=== PATIENT | male | born 1965 | race Caucasian/White ===

== ENCOUNTER 2023-07-26 19:25 | Inpatient (IN) | payer OTHER, SELFPAY ==
[2023-07-26] VITALS (27 sets, daily range): BP systolic 93–139; BP diastolic 56–96; PULSE 89–165; RESP 16–25; TEMP 36.8–37.4; O2SAT 92–100
--- NOTE | 2023-07-26 19:56 | DI.CT.S_ITS ---
PROCEDURE: CT ABDOMEN PELVIS W CON INDICATIONS: ABD PAIN, GENERALIZED X 2 WKS TECHNIQUE: After the administration of intravenous contrast, axial sections acquired from the lung bases to the pubic symphysis. Coronal and sagittal reformats were performed. For radiation dose reduction, the following was used: automated exposure control, adjustment of mA and/or kV according to patient size. COMPARISON: Formerly [facility], CT, ABDOMEN/PELVIS WITH CONTRAST, 10/17/2011, 20:21. Former[facility], CT, ABDOMEN/PELVIS WITH CONTRAST, 03/13/2010, 21:26. FINDINGS: Image quality: Diagnostic. Lower Chest: No significant findings. ABDOMEN: Liver: No solid mass. There is diffuse hypoattenuation of the liver parenchyma relative to the spleen compatible with hepatic steatosis. Gallbladder: No radiopaque gallstones or wall thickening. Biliary ducts: No biliary dilation. Pancreas: No ductal dilation. Spleen: Size is within normal limits. Adrenal Glands: No adrenal nodules. Kidneys and Ureters: No hydronephrosis. No solid mass. No complex renal cystic lesion which requires follow up. Stomach and Bowel: Normal colonic caliber, without significant wall thickening. Normal appendix. Scattered colonic diverticula without acute inflammation. Peritoneum: No abnormal intraperitoneal fluid. No free air. Ventral Wall: No significant ventral hernia. Abdominal Nodes: No retroperitoneal or mesenteric adenopathy by size criteria. Vessels: Scattered atherosclerotic calcifications of the abdominal aorta and iliac vessels without aneurysmal dilatation. The inferior vena cava appears patent. PELVIS: Pelvic Organs: Unremarkable. Bladder: No bladder wall thickening, accounting for underdistention. Pelvic Nodes: No enlarged lymph nodes. Miscellaneous: No inguinal hernias are seen. Bones: No aggressive osseous abnormality. Multilevel spondylosis of the imaged spine. Chronic appearing anterior compression deformity of the T12 vertebral body. IMPRESSION: CT abdomen and pelvis without acute abnormalities to explain patient's symptoms. Colonic diverticulosis without acute diverticulitis. Normal appendix. Hepatic steatosis. Dictated by: Galo Lester M.D. on 07/26/2023 at 21:48 Approved by: Galo Lester M.D. on 07/26/2023 at 21:53
--- NOTE | 2023-07-26 19:57 | DI.RAD.S_ITS ---
PROCEDURE: XR CHEST 1V INDICATIONS: CHEST PAIN TECHNIQUE: One view of the chest was acquired. COMPARISON: [facility], , CHEST 1 VIEW, 04/12/2014, 17:59. FINDINGS: Surgical changes and devices: None. Lungs and pleura: Lungs are clear. No pleural effusions or pneumothorax. Mediastinum: Mediastinal contours appear normal. Heart size is normal. Bones and chest wall: No suspicious bony lesions. Overlying soft tissues appear unremarkable. IMPRESSION: Stable radiographic evaluation of the chest without acute cardiopulmonary abnormalities or focal airspace disease. Dictated by: Galo Lester M.D. on 07/26/2023 at 21:48 Approved by: Galo Lester M.D. on 07/26/2023 at 21:48
--- NOTE | 2023-07-26 19:57 | ED.GENADULT ---
HPI - General Adult General Chief complaint: Abdominal Pain Stated complaint: ABD Pain Time Seen by Provider: 07/26/23 19:51 Source: patient Mode of arrival: Wheelchair History of Present Illness HPI narrative: 58-year-old male with no reported past medical history (has not seen a PCP in >3 years) presents by private vehicle from home for chest pain, abdominal pain, generally feeling unwell for 10 days. Patient states that after watching the super bowl he began to feel poorly with all of the aforementioned symptoms. He states that he was stubborn and tried to wait it out at home, but today he felt even worse than usual and decided to present for evaluation. Patient was found to be in atrial fibrillation with rapid ventricular response and a rate of 150s on arrival. Denies history of AFib or heart problems. Related Data Home Medications Medication Instructions Recorded Confirmed nebivolol 5 mg tablet (Bystolic) 5 mg PO HS ##0 08/27/12 ondansetron HCl 4 mg tablet 4 mg PO PRN ##0 08/27/12 Allergies Allergy/AdvReac Type Severity Reaction Status Date / Time Penicillins Allergy Anaphylaxis Verified 07/26/23 19:45 Sulfa (Sulfonamide Allergy Anaphylaxis Verified 07/26/23 19:46 Antibiotics) TREES Allergy Unknown Uncoded 09/13/17 12:07 Review of Systems Review of Systems Narrative: Negative except as noted above Patient History Social History Smoking Status: Never smoker Smoking Status: Never smoker alcohol intake frequency: holidays/special occasions only Substance Use Type: does not use Exam Initial Vital Signs Initial Vital Signs: Vital Signs Temperature 98.2 F 07/26/23 19:46 Pulse Rate 157 H 07/26/23 19:46 Respiratory Rate 20 07/26/23 19:46 Blood Pressure 94/60 07/26/23 19:46 Pulse Oximetry 99 07/26/23 19:46 Oxygen Delivery Method Room Air 07/26/23 19:46 Const: Awake, alert, ill-appearing, nontoxic Cardiac: Tachycardia, irregularly irregular RESP: unlabored, clear bilaterally, no wheezing GI: Atraumatic, soft, generalized tenderness to deep palpation without rebound or guarding Skin: Warm, Dry, intact, no rashes Neuro: AO x3, CN II-XII grossly intact, moves all extremities Psych: affect normal, mood normal, not suicidal, not homicidal Course Orders Ordered: ED Orders 07/26/23 19:56 CT abdomen pelvis w con Stat 07/26/23 19:57 Chest [XR chest 1V] Stat EKG-12 Lead Stat 07/26/23 20:00 BNP [NT-proBNP (BNP-Adult 18+)] Stat CBC Auto Diff [Complete Blood Count AUTO DIFF] Stat CMP [Comprehensive Metabolic Panel] Stat Ethanol (ETOH) Stat Lipase Stat MAG [Magnesium] Stat PT [Prothrombin Time INR] Stat TSH [Thyroid Stimulating Hormone] Stat Troponin & CK Cardiac Panel Stat 07/26/23 21:45 UA Complete [Urinalysis and Microscopic] Stat Urine Drug Screen, Rapid Stat 07/27/23 00:14 ABG [Arterial Blood Gas] Stat Amiodarone HCl/Dextrose (Nexterone) 360 mg in 200 mls @ 33.333 mls/hr IV NOW ONE; Protocol Stop: 07/27/23 05:51 Last Admin: 07/27/23 00:18 Dose: 33.333 mls/hr, 33.33 mls/hr Documented By: LANA Discontinued Medications Al Hydrox/Mg Hydrox/Simethicone (Mag Hydrox/Alum/Simeth 30 Ml Udc) 30 ml PO NOW ONE Stop: 07/26/23 22:10 Last Admin: 07/26/23 22:14 Dose: 30 ml Documented By: LANA Diltiazem HCl (Diltiazem 5 Mg/Ml Sdv) 20 mg IV NOW ONE Stop: 07/26/23 21:08 Last Admin: 07/26/23 21:15 Dose: 20 mg Documented By: LENORE Sodium Chloride (Normal Saline 0.9%) 1,000 mls @ 1,000 mls/hr IV BOLUS ONE Stop: 07/26/23 20:55 Last Infusion: 07/26/23 21:17 Dose: Infused Documented By: Admin: 07/26/23 20:12 Dose: 1,000 mls/hr Documented By: LENORE Sodium Chloride (Normal Saline 0.9%) 1,000 mls @ 1,000 mls/hr IV BOLUS ONE Stop: 07/26/23 21:36 Last Infusion: 07/26/23 22:05 Dose: Infused Documented By: Admin: 07/26/23 20:58 Dose: 1,000 mls/hr Documented By: LENORE Sodium Chloride (Normal Saline 0.9%) 1,000 mls @ 1,000 mls/hr IV BOLUS ONE Stop: 07/26/23 23:29 Last Infusion: 07/26/23 23:47 Dose: Infused Documented By: Admin: 07/26/23 22:42 Dose: 1,000 mls/hr Documented By: LENORE Amiodarone HCl/Dextrose (Nexterone) 150 mg in 100 mls @ 600 mls/hr IV NOW ONE; Protocol Stop: 07/27/23 00:01 Last Infusion: 07/27/23 00:19 Dose: Infused Documented By: Admin: 07/26/23 23:58 Dose: 600 mls/hr Documented By: LANA Insulin Human Regular (Insulin Regular 100 Unit/Ml 3 Ml Vial) 5 unit IV NOW ONE Stop: 07/26/23 20:50 Last Admin: 07/26/23 21:01 Dose: 5 unit Documented By: LENORE Co-signed By: OLEG Insulin Human Regular (Insulin Regular 100 Unit/Ml 3 Ml Vial) 5 unit IV NOW ONE Stop: 07/26/23 22:31 Last Admin: 07/26/23 22:42 Dose: 5 unit Documented By: LENORE Co-signed By: LANA Lidocaine HCl (Lidocaine Viscous 2% 15 Ml Solution) 15 ml PO NOW ONE Stop: 07/26/23 22:10 Last Admin: 07/26/23 22:14 Dose: 15 ml Documented By: LANA Metoprolol Tartrate (Metoprolol Tartrate 5 Mg/5 Ml Inj) 5 mg IV Q5M AIDE Stop: 07/26/23 20:11 Last Admin: 07/26/23 20:58 Dose: 5 mg Documented By: Admin: 07/26/23 20:26 Dose: 5 mg Documented By: Admin: 07/26/23 20:12 Dose: 5 mg Documented By: LENORE Vital Signs Vital signs: Vital Signs - 8 hr 07/26/23 19:46 07/26/23 19:53 07/26/23 19:53 Temperature 98.2 F Pulse Rate 157 H 155 H Respiratory Rate 20 21 Blood Pressure 94/60 113/76 Pulse Oximetry 99 98 Oxygen Delivery Method Room Air 07/26/23 20:00 07/26/23 20:00 07/26/23 20:02 Temperature 99.3 F Pulse Rate 162 H 162 H Respiratory Rate 25 H 19 Blood Pressure Pulse Oximetry 92 99 Oxygen Delivery Method 07/26/23 20:02 07/26/23 20:12 07/26/23 20:12 Temperature Pulse Rate 162 H Respiratory Rate 20 Blood Pressure 121/96 H 112/83 Pulse Oximetry 96 Oxygen Delivery Method 07/26/23 20:18 07/26/23 20:18 07/26/23 20:25 Temperature Pulse Rate 162 H Respiratory Rate Blood Pressure 130/84 139/83 Pulse Oximetry 96 Oxygen Delivery Method 07/26/23 20:25 07/26/23 20:29 07/26/23 20:29 Temperature Pulse Rate 151 H 133 H Respiratory Rate 23 21 Blood Pressure 122/68 Pulse Oximetry 98 98 Oxygen Delivery Method 07/26/23 20:30 07/26/23 20:30 07/26/23 20:32 Temperature Pulse Rate 134 H 165 H Respiratory Rate 18 23 Blood Pressure 128/78 Pulse Oximetry 97 97 Oxygen Delivery Method Room Air 07/26/23 20:32 07/26/23 20:58 07/26/23 20:58 Temperature Pulse Rate 159 H Respiratory Rate 17 Blood Pressure 128/74 123/61 Pulse Oximetry 98 Oxygen Delivery Method 07/26/23 21:00 07/26/23 21:00 07/26/23 21:15 Temperature Pulse Rate 155 H 143 H Respiratory Rate 16 Blood Pressure 118/74 110/83 Pulse Oximetry 97 Oxygen Delivery Method Room Air 07/26/23 21:16 07/26/23 21:16 07/26/23 21:21 Temperature Pulse Rate 144 H Respiratory Rate 18 Blood Pressure 110/83 123/83 Pulse Oximetry 99 Oxygen Delivery Method 07/26/23 21:21 07/26/23 21:23 07/26/23 21:23 Temperature Pulse Rate 131 H 103 H Respiratory Rate 19 21 Blood Pressure 115/69 Pulse Oximetry 99 98 Oxygen Delivery Method Room Air 07/26/23 21:24 07/26/23 21:24 07/26/23 21:25 Temperature Pulse Rate 103 H Respiratory Rate 21 Blood Pressure 103/64 98/57 L Pulse Oximetry 99 Oxygen Delivery Method 07/26/23 21:25 07/26/23 21:30 07/26/23 21:30 Temperature Pulse Rate 102 H 93 H Respiratory Rate 20 20 Blood Pressure 93/63 Pulse Oximetry 98 97 Oxygen Delivery Method 07/26/23 21:45 07/26/23 21:45 07/26/23 22:00 Temperature Pulse Rate 91 H Respiratory Rate 17 Blood Pressure 101/70 101/78 Pulse Oximetry 100 Oxygen Delivery Method 07/26/23 22:00 07/26/23 22:30 07/26/23 22:30 Temperature Pulse Rate 93 H 100 H Respiratory Rate 18 19 Blood Pressure 96/57 L Pulse Oximetry 100 98 Oxygen Delivery Method 07/26/23 23:00 07/26/23 23:02 07/26/23 23:04 Temperature Pulse Rate 111 H 118 H Respiratory Rate 18 19 Blood Pressure 101/64 Pulse Oximetry 99 98 Oxygen Delivery Method 07/26/23 23:04 07/26/23 23:05 07/26/23 23:05 Temperature Pulse Rate 89 109 H Respiratory Rate Blood Pressure 109/56 L Pulse Oximetry 99 99 Oxygen Delivery Method 07/26/23 23:30 07/26/23 23:30 07/27/23 00:00 Temperature Pulse Rate 123 H 116 H Respiratory Rate 19 Blood Pressure 101/64 Pulse Oximetry 98 99 Oxygen Delivery Method Room Air 07/27/23 00:00 07/27/23 00:30 07/27/23 00:30 Temperature Pulse Rate 119 H Respiratory Rate 18 Blood Pressure 108/68 91/65 Pulse Oximetry 100 Oxygen Delivery Method Medical Decision Making Differential Diagnosis Differential Diagnosis: Atrial fibrillation with rapid ventricular response, hypertension, DKA Lab Data 07/26/23 20:00 07/26/23 20:00 Labs: Lab Results 07/26/23 07/26/23 07/26/23 Range/Units 20:00 21:45 21:45 WBC 11.9 H (4.5-11.0) X10^3/uL RBC 5.57 (4.5-5.9) X10^6/uL Hgb 17.9 H (13.5-17.5) g/dL Hct 52.4 (41-53) % MCV 93.9 (80-100) fL MCH 32.0 (26-34) PG MCHC 34.1 (30-36) % RDW 13.2 (11.6-14.8) % Plt Count 209 (150-400) X10^3/uL Neut % (Auto) 87.9 H (50-75) % Lymph % (Auto) 6.0 L (25-40) % Mobile % (Auto) 5.9 (3-14) % Eos % (Auto) 0.0 L (2-4) % Baso % (Auto) 0.2 (0-2) % Neut # (Auto) 26605 H (9720-6924) /uL Lymph # (Auto) 700 L (7048-5181) /uL Mobile # (Auto) 700 (0-900) /uL Eos # (Auto) 0 (0-450) /uL Baso # (Auto) 0 (0-100) /uL PT 12.9 H (9.4-12.5) SECONDS INR 1.1 (0.9-1.3) ABG Sample Site ABG pH (7.35-7.45) ABG pCO2 (35-45) mmHg ABG pO2 (80-100) mmHg ABG HCO3 (23-27) mmol/L ABG Total CO2 (23-27) mmol/L ABG O2 Saturation (95-100) % ABG Base Excess (-2-3) mmol/L FiO2 Sodium 131 L (137-145) mmol/L Potassium 4.8 (3.4-5.1) mmol/L Chloride 96 L (98-107) mmol/L Carbon Dioxide 11 L (22-32) mmol/L BUN 41 H (9-20) mg/dL Creatinine 1.19 (0.66-1.25) mg/dL Estimated GFR > 60 (>60) mL/min BUN/Creatinine Ratio 34.5 H (6-22) Glucose 611 H* (80-110) mg/dL Calcium 9.2 (8.4-10.2) mg/dL Magnesium 2.4 H (1.6-2.3) mg/dL Total Bilirubin 2.5 H (0.2-1.3) mg/dL AST 39 (17-59) IU/L ALT 66 H (<50) IU/L Alkaline Phosphatase 68 (38-126) U/L Total Creatine Kinase 172 H (55-170) U/L Troponin I < 0.012 (0.01-0.034) ng/mL NT-Pro-B Natriuret Pep 3700 H (<125) pg/mL Total Protein 7.6 (6.3-8.2) g/dL Albumin 4.5 (3.5-5.0) g/dL Globulin 3.1 (1.7-4.1) g/dL Albumin/Globulin Ratio 1.5 (1.0-2.8) Lipase 277 (23-300) U/L TSH 1.25 (0.47-4.68) uIU/mL Urine Color Yellow Urine Appearance Clear Urine pH 5.5 Normal (4.5-8.0) Ur Specific [place] <=1.005 (1.000-1.035) Urine Protein Negative (Negative) Urine Glucose (UA) 3+ H (Negative) g/dL Urine Ketones 1+ H (NEGATIVE) Urine Occult Blood Negative (Negative) Urine Nitrate Negative (Negative) Urine Bilirubin Negative (NEGATIVE) Urine Urobilinogen 0.2 (0.2) E.U./dL Ur Leukocyte Esterase Negative (NEGATIVE) Urine RBC None seen (0-5/HPF) Urine WBC None seen (0-5/HPF) Ur Squamous Epith Cells None seen (0-5/HPF) Urine Bacteria None seen (None) Ur Culture Indicated? Cult not indicated Vol Urine Centrifuged 10ml (spun) U Opiates 300ng/mL cut Negative (Negative) Ur Oxycodone Screen Negative (Negative) Urine Methadone Screen Negative (Negative) Ur Barbiturates Screen Negative (Negative) U Tricyclic Antidepress Negative (Negative) Ur Phencyclidine Scrn Negative (Negative) Ur Amphetamines Screen Negative (Negative) U Methamphetamines Scrn Negative (Negative) Ur MDMA Scrn (Ecstasy) Negative (Negative) U Benzodiazepines Scrn Negative (Negative) Urine Cocaine Screen Negative (Negative) U Marijuana (THC) Screen Negative (Negative) Urine Specific [place] Normal (Normal) Ethyl Alcohol < 10 ( - 10) mg/dL Ur Creatinine Normal (Normal) 07/27/23 Range/Units 00:14 WBC (4.5-11.0) X10^3/uL RBC (4.5-5.9) X10^6/uL Hgb (13.5-17.5) g/dL Hct (41-53) % MCV (80-100) fL MCH (26-34) PG MCHC (30-36) % RDW (11.6-14.8) % Plt Count (150-400) X10^3/uL Neut % (Auto) (50-75) % Lymph % (Auto) (25-40) % Mobile % (Auto) (3-14) % Eos % (Auto) (2-4) % Baso % (Auto) (0-2) % Neut # (Auto) (5093-8979) /uL Lymph # (Auto) (4052-7764) /uL Mobile # (Auto) (0-900) /uL Eos # (Auto) (0-450) /uL Baso # (Auto) (0-100) /uL PT (9.4-12.5) SECONDS INR (0.9-1.3) ABG Sample Site Right radial ABG pH 7.35 (7.35-7.45) ABG pCO2 28.8 L (35-45) mmHg ABG pO2 89 (80-100) mmHg ABG HCO3 16 L (23-27) mmol/L ABG Total CO2 17 L (23-27) mmol/L ABG O2 Saturation 97 (95-100) % ABG Base Excess -9.0 L (-2-3) mmol/L FiO2 21 Sodium (137-145) mmol/L Potassium (3.4-5.1) mmol/L Chloride (98-107) mmol/L Carbon Dioxide (22-32) mmol/L BUN (9-20) mg/dL Creatinine (0.66-1.25) mg/dL Estimated GFR (>60) mL/min BUN/Creatinine Ratio (6-22) Glucose (80-110) mg/dL Calcium (8.4-10.2) mg/dL Magnesium (1.6-2.3) mg/dL Total Bilirubin (0.2-1.3) mg/dL AST (17-59) IU/L ALT (<50) IU/L Alkaline Phosphatase (38-126) U/L Total Creatine Kinase (55-170) U/L Troponin I (0.01-0.034) ng/mL NT-Pro-B Natriuret Pep (<125) pg/mL Total Protein (6.3-8.2) g/dL Albumin (3.5-5.0) g/dL Globulin (1.7-4.1) g/dL Albumin/Globulin Ratio (1.0-2.8) Lipase (23-300) U/L TSH (0.47-4.68) uIU/mL Urine Color Urine Appearance Urine pH (4.5-8.0) Ur Specific [place] (1.000-1.035) Urine Protein (Negative) Urine Glucose (UA) (Negative) g/dL Urine Ketones (NEGATIVE) Urine Occult Blood (Negative) Urine Nitrate (Negative) Urine Bilirubin (NEGATIVE) Urine Urobilinogen (0.2) E.U./dL Ur Leukocyte Esterase (NEGATIVE) Urine RBC (0-5/HPF) Urine WBC (0-5/HPF) Ur Squamous Epith Cells (0-5/HPF) Urine Bacteria (None) Ur Culture Indicated? Vol Urine Centrifuged U Opiates 300ng/mL cut (Negative) Ur Oxycodone Screen (Negative) Urine Methadone Screen (Negative) Ur Barbiturates Screen (Negative) U Tricyclic Antidepress (Negative) Ur Phencyclidine Scrn (Negative) Ur Amphetamines Screen (Negative) U Methamphetamines Scrn (Negative) Ur MDMA Scrn (Ecstasy) (Negative) U Benzodiazepines Scrn (Negative) Urine Cocaine Screen (Negative) U Marijuana (THC) Screen (Negative) Urine Specific [place] (Normal) Ethyl Alcohol ( - 10) mg/dL Ur Creatinine (Normal) Point of Care Testing Glucose POC 440 Point of care testing: Point of Care Testing Glucose POC 440 ECG Data Interpretation: Atrial fibrillation with 2-1 conduction, rate 162 beats per minute, no ST T wave changes MDM Narrative Medical decision making narrative: Ill-appearing patient presenting for multiple symptoms, found to be in atrial fibrillation with rapid ventricular response on arrival. Patient taken quickly to ED bed where he was placed on monitoring manager, pulse ox applied, large-bore IV established. Uncertain when atrial fibrillation started, however patient has felt poorly for the last 10 days, patient is not a candidate for rhythm control in the emergency department. Since EKG shows 2-1 conduction we will start with IV metoprolol. No improvement in heart rate with IV metoprolol x3. Will attempt Cardizem next. Laboratory work is significant for WBC count 11.9, sodium 131, chloride 96, CO2 11, creatinine 1.19, T bili 2.5, glucose 611. Calculated anion gap 24. Patient given bolus of insulin and started on IV fluids. CT of the abdomen and pelvis shows no acute findings, uncertain significance of elevated bilirubin. Heart rate briefly improved to 100-110s with Cardizem, however the effect was brief, lasting just over 1 hour, and patient rapidly returned to AFib with RVR with blood pressure 101 systolic. Will attempt amiodarone next. ABG shows pH 7.35, CO2 29, PO2 89, bicarb 16. Patient is continued on IV fluids and amiodarone. Plan to admit patient for further treatment. Critical Care Time Critical Care Time Critical Care Time: Yes Total Critical Care Time: 42 Attestation: Atrial fibrillation with RVR resistant to multiple medications, hyperglycemia requiring correction. Anion gap acidosis Discharge Plan Departure Patient Disposition: Admitted as Observation Clinical Impression: Atrial fibrillation with RVR, Hyperglycemia Admit Date/Time: 07/27/23 00:34 Admit Provider: Boogie Black
[2023-07-26] MEDS: METOPROLOL TARTRATE 5 MG/5 ML INJ IV ×3 (20:12→20:58)
[2023-07-26] MEDS: SODIUM CHLORIDE 0.9% 1,000 ML 1000 ML IV ×3 (20:12→22:42)
[2023-07-26 20:21] LABS: Add Manual Diff / Slide Review NO; Basophils Absolute Auto 0 /uL (0-100); Basophils Percent Auto 0.2 % (0-2); Eosinophils Absolute Auto 0 /uL (0-450); Hematocrit 52.4 % (41-53); Hemoglobin 17.9 g/dL (13.5-17.5); Lymphocytes Absolute Auto 700 /uL (1100-4500); Mean Corpuscular HGB Conc 34.1 % (30-36); Mean Corpuscular Volume 93.9 fL (80-100); Monocytes Absolute Auto 700 /uL (0-900); Monocytes Percent Auto 5.9 % (3-14); Neutrophils Absolute Auto 10500 /uL (1500-7000); Neutrophils Percent Auto 87.9 % (50-75); Platelet Count 209 X10^3/uL (150-400); Red Blood Cell Count 5.57 X10^6/uL (4.5-5.9); Red Cell Distribution Width 13.2 % (11.6-14.8); White Blood Cell Count 11.9 X10^3/uL (4.5-11.0)
[2023-07-26 20:25] LABS: INR 1.1 (0.9-1.3); Prothrombin Time 12.9 SECONDS (9.4-12.5)
[2023-07-26 20:33] LABS: Alanine Aminotransferase 66 IU/L (<50); Albumin 4.5 g/dL (3.5-5.0); Albumin Globulin Ratio 1.5 (1.0-2.8); Alkaline Phosphatase 68 U/L (38-126); Aspartate Aminotransferase 39 IU/L (17-59); BUN Creatinine Ratio 34.5 (6-22); Bilirubin Total 2.5 mg/dL (0.2-1.3); Blood Urea Nitrogen 41 mg/dL (9-20); Calcium 9.2 mg/dL (8.4-10.2); Carbon Dioxide 11 mmol/L (22-32); Chloride 96 mmol/L (98-107); Creatine Kinase 172 U/L (55-170); Estimated Glomerular Filt Rate > 60 mL/min (>60); Ethanol (ETOH) < 10 mg/dL; Globulin 3.1 g/dL (1.7-4.1); HEMOLYSIS 22 (0-50); Lipase 277 U/L (23-300); Magnesium 2.4 mg/dL (1.6-2.3); Potassium 4.8 mmol/L (3.4-5.1); Sodium 131 mmol/L (137-145); Total Protein 7.6 g/dL (6.3-8.2)
[2023-07-26 20:35] LABS: Glucose 611 mg/dL (80-110)
[2023-07-26 20:44] LABS: NT-proBNP (BNP-Adult 18+) 3700 pg/mL (<125); Troponin I < 0.012 ng/mL (0.01-0.034)
[2023-07-26] MEDS: INSULIN REGULAR 100 UNIT/ML 3 ML VIAL IV ×2 (21:01→22:42)
[2023-07-26 21:08] LABS: Thyroid Stimulating Hormone 1.25 uIU/mL (0.47-4.68)
[2023-07-26] MEDS: dilTIAZem 5 MG/ML SDV 20 MG IV (21:15)
[2023-07-26 22:03] LABS: Appearance Urine UA CLEAR; Bilirubin Urine UA NEGATIVE (NEGATIVE); Color Urine UA YELLOW; Glucose Urine UA 3+ g/dL (Negative); Ketones Urine UA 1+ (NEGATIVE); Leukocyte Esterase Urine UA NEGATIVE (NEGATIVE); Nitrite Urine UA NEGATIVE (Negative); Occult Blood Urine UA NEGATIVE (Negative); Protein Urine UA NEGATIVE (Negative); Specific Gravity Urine UA <=1.005 (1.000-1.035); Urobilinogen Urine UA 0.2 E.U./dL (0.2); pH Urine UA 5.5 (4.5-8.0)
[2023-07-26 22:10] LABS: Ur Creatinine Normal (Normal); Ur Specific Gravity Normal (Normal); Urine Amphetamines Negative (Negative); Urine Barbiturates Negative (Negative); Urine Benzodiazepines Negative (Negative); Urine Cocaine Negative (Negative); Urine MDMA Negative (Negative); Urine Methadone Negative (Negative); Urine Methamphetamines Negative (Negative); Urine Opiates Negative (Negative); Urine Oxycodone Negative (Negative); Urine Phencyclidine Negative (Negative); Urine THC Negative (Negative); Urine Tricyclic Antidepressant Negative (Negative); Urine pH Normal (Normal)
[2023-07-26] MEDS: MAG HYDROX/ALUM/SIMETH 30 ML UDC PO (22:14)
[2023-07-26] MEDS: LIDOCAINE VISCOUS 2% 15 ML SOLUTION PO (22:14)
[2023-07-26 22:24] LABS: Bacteria Urine None Seen; RBC Urine None Seen (0-5/HPF); Squamous Epithelial Cell Urine None Seen (0-5/HPF); Urine Volume 10mL (spun); WBC Urine None Seen (0-5/HPF)
[2023-07-26 22:25] LABS: Culture Indicated Urine Cult Not Indicated
[2023-07-26] MEDS: AMIODARONE 150 MG/100 ML PIGGYBACK 600 MG IV (23:58)
[2023-07-27] VITALS (58 sets, daily range): BP systolic 82–139; BP diastolic 52–96; PULSE 66–136; RESP 0–30; O2SAT 94–100; BMI 29.0
[2023-07-27] MEDS: AMIODARONE 360 MG/200 ML PIGGYBACK 33.33 MG IV (00:18)
[2023-07-27 00:29] LABS: HCO3 ABG 16 mmol/L (23-27); PCO2 ABG 28.8 mmHg (35-45); PO2 ABG 89 mmHg (80-100); pH ABG 7.35 (7.35-7.45)
[2023-07-27 00:30] LABS: Allen Test for ABG Passed? Yes, Passed; Blood Gas Collection Site Right Radial; Fractionated Inspired Oxygen 21; Oxygen Saturation ABG 97 % (95-100); TCO2 ABG 17 mmol/L (23-27)
--- NOTE | 2023-07-27 04:21 | P.HP_ITS ---
History of Present Illness History of Present Illness Chief complaint: ABD Pain Narrative: Abdominal pain 58 years old male with apparent history of hypertension but not on seen a physician in more than 3 years was brought to the emergency room for abdominal pain with generalized weakness and also chest pain.? Reports that symptoms started after the [place] last week and initially thought it was indigestion issues but due to persistent symptoms, eventually was brought to the emergency room.? In the ED was noted to be in A-fib with rapid ventricular rate and heart rate in the 150s.? Denies any palpitations or loss of consciousness.? Did have abdominal pain which is diffuse with nausea and vomiting multiple episodes since the past few days and the last episode had some blood in it.? Last bowel movement was 2 days ago.? Blood pressure systolic was in the 90s with a pulse in the 150s.? He was initiated on IV fluid bolus and a follow-up labs revealed a WBC count of 11.9, hemoglobin of 17.9, sodium of 131 with a CO2 of 11 BUN of 41 and a creatinine of 1.19.? BNP was 3700 and a blood sugar of 611 with an anion gap of greater than 20.? Subsequent ABG revealed a pH of 7.35 with a pCO2 of 28.8. CT abdomen was negative for acute process.? Patient received IV insulin with aggressive volume resuscitation in addition to IV metoprolol X.3, IV Cardizem bolus.? With no response to either medication, patient was subsequently started on amiodarone drip.? He was requested for admission but currently boarded in the emergency room due to bed availability issues [facility] Social History Smoking Status: Never smoker Meds Home Medications and Allergies Home Medications Medication Instructions Recorded Confirmed Type nebivolol 5 mg tablet (Bystolic) 5 mg PO HS ##0 08/27/12 History ondansetron HCl 4 mg tablet 4 mg PO PRN ##0 08/27/12 History Allergies Allergy/AdvReac Type Severity Reaction Status Date / Time Penicillins Allergy Anaphylaxis Verified 07/26/23 19:45 Sulfa (Sulfonamide Allergy Anaphylaxis Verified 07/26/23 19:46 Antibiotics) TREES Allergy Unknown Uncoded 09/13/17 12:07 Review of Systems Review of Systems Narrative: 12 point review of system is negative unless other sarah stated in HPI Exam Vital Signs (past 8 hours): - 07/26/23 20:25 07/26/23 20:25 07/26/23 20:29 Pulse Rate 151 H Respiratory Rate 23 Blood Pressure 139/83 122/68 Pulse Oximetry 98 Oxygen Delivery Method 07/26/23 20:29 07/26/23 20:30 07/26/23 20:30 Pulse Rate 133 H 134 H Respiratory Rate 21 18 Blood Pressure 128/78 Pulse Oximetry 98 97 Oxygen Delivery Method 07/26/23 20:32 07/26/23 20:32 07/26/23 20:58 Pulse Rate 165 H Respiratory Rate 23 Blood Pressure 128/74 123/61 Pulse Oximetry 97 Oxygen Delivery Method Room Air 07/26/23 20:58 07/26/23 21:00 07/26/23 21:00 Pulse Rate 159 H 155 H Respiratory Rate 17 16 Blood Pressure 118/74 Pulse Oximetry 98 97 Oxygen Delivery Method Room Air 07/26/23 21:15 07/26/23 21:16 07/26/23 21:16 Pulse Rate 143 H 144 H Respiratory Rate 18 Blood Pressure 110/83 110/83 Pulse Oximetry 99 Oxygen Delivery Method 07/26/23 21:21 07/26/23 21:21 07/26/23 21:23 Pulse Rate 131 H 103 H Respiratory Rate 19 21 Blood Pressure 123/83 Pulse Oximetry 99 98 Oxygen Delivery Method Room Air 07/26/23 21:23 07/26/23 21:24 07/26/23 21:24 Pulse Rate 103 H Respiratory Rate 21 Blood Pressure 115/69 103/64 Pulse Oximetry 99 Oxygen Delivery Method 07/26/23 21:25 07/26/23 21:25 07/26/23 21:30 Pulse Rate 102 H Respiratory Rate 20 Blood Pressure 98/57 L 93/63 Pulse Oximetry 98 Oxygen Delivery Method 07/26/23 21:30 07/26/23 21:45 07/26/23 21:45 Pulse Rate 93 H 91 H Respiratory Rate 20 17 Blood Pressure 101/70 Pulse Oximetry 97 100 Oxygen Delivery Method 07/26/23 22:00 07/26/23 22:00 07/26/23 22:30 Pulse Rate 93 H Respiratory Rate 18 Blood Pressure 101/78 96/57 L Pulse Oximetry 100 Oxygen Delivery Method 07/26/23 22:30 07/26/23 23:00 07/26/23 23:02 Pulse Rate 100 H 111 H 118 H Respiratory Rate 19 18 19 Blood Pressure Pulse Oximetry 98 99 98 Oxygen Delivery Method 07/26/23 23:04 07/26/23 23:04 07/26/23 23:05 Pulse Rate 89 Respiratory Rate Blood Pressure 101/64 109/56 L Pulse Oximetry 99 Oxygen Delivery Method 07/26/23 23:05 07/26/23 23:30 07/26/23 23:30 Pulse Rate 109 H 123 H Respiratory Rate Blood Pressure 101/64 Pulse Oximetry 99 98 Oxygen Delivery Method 07/27/23 00:00 07/27/23 00:00 07/27/23 00:30 Pulse Rate 116 H 119 H Respiratory Rate 19 18 Blood Pressure 108/68 Pulse Oximetry 99 100 Oxygen Delivery Method Room Air 07/27/23 00:30 07/27/23 00:45 07/27/23 00:46 Pulse Rate 117 H Respiratory Rate 15 Blood Pressure 91/65 137/70 Pulse Oximetry 95 Oxygen Delivery Method Room Air 07/27/23 00:46 07/27/23 01:00 07/27/23 01:00 Pulse Rate 111 H 111 H Respiratory Rate 17 20 Blood Pressure 113/56 L Pulse Oximetry 98 100 Oxygen Delivery Method Room Air 07/27/23 01:30 07/27/23 01:45 07/27/23 01:45 Pulse Rate 66 118 H Respiratory Rate 16 Blood Pressure 104/62 Pulse Oximetry 97 99 Oxygen Delivery Method Room Air 07/27/23 02:00 07/27/23 02:00 07/27/23 02:30 Pulse Rate 117 H 123 H Respiratory Rate 19 19 Blood Pressure 102/65 Pulse Oximetry 98 94 Oxygen Delivery Method Room Air 07/27/23 02:30 07/27/23 03:00 07/27/23 03:00 Pulse Rate 121 H Respiratory Rate 23 Blood Pressure 105/73 85/65 L Pulse Oximetry 97 Oxygen Delivery Method 07/27/23 03:03 07/27/23 03:03 07/27/23 03:30 Pulse Rate 119 H 125 H Respiratory Rate 12 Blood Pressure 88/63 L 88/63 L Pulse Oximetry 98 99 Oxygen Delivery Method 07/27/23 04:00 Pulse Rate 128 H Respiratory Rate 20 Blood Pressure Pulse Oximetry 99 Oxygen Delivery Method Room Air Oxygen Delivery Method Room Air Narrative Exam Narrative: appear dehydrated ENT:mucous membranes are dry CVS: tachycardic and irregular Abdomen:tender Objective Labs 07/26/23 20:00 07/26/23 20:00 Labs: Laboratory Results - last 24 hr 07/26/23 07/26/23 07/26/23 20:00 21:45 21:45 WBC 11.9 H RBC 5.57 Hgb 17.9 H Hct 52.4 MCV 93.9 MCH 32.0 MCHC 34.1 RDW 13.2 Plt Count 209 Neut % (Auto) 87.9 H Lymph % (Auto) 6.0 L Frontier % (Auto) 5.9 Eos % (Auto) 0.0 L Baso % (Auto) 0.2 Neut # (Auto) 90930 H Lymph # (Auto) 700 L Frontier # (Auto) 700 Eos # (Auto) 0 Baso # (Auto) 0 PT 12.9 H INR 1.1 ABG Sample Site ABG pH ABG pCO2 ABG pO2 ABG HCO3 ABG Total CO2 ABG O2 Saturation ABG Base Excess FiO2 Sodium 131 L Potassium 4.8 Chloride 96 L Carbon Dioxide 11 L BUN 41 H Creatinine 1.19 Estimated GFR > 60 BUN/Creatinine Ratio 34.5 H Glucose 611 H* Calcium 9.2 Magnesium 2.4 H Total Bilirubin 2.5 H AST 39 ALT 66 H Alkaline Phosphatase 68 Total Creatine Kinase 172 H Troponin I < 0.012 NT-Pro-B Natriuret Pep 3700 H Total Protein 7.6 Albumin 4.5 Globulin 3.1 Albumin/Globulin Ratio 1.5 Lipase 277 TSH 1.25 Urine Color Yellow Urine Appearance Clear Urine pH 5.5 Normal Ur Specific Golden <=1.005 Urine Protein Negative Urine Glucose (UA) 3+ H Urine Ketones 1+ H Urine Occult Blood Negative Urine Nitrate Negative Urine Bilirubin Negative Urine Urobilinogen 0.2 Ur Leukocyte Esterase Negative Urine RBC None seen Urine WBC None seen Ur Squamous Epith Cells None seen Urine Bacteria None seen Ur Culture Indicated? Cult not indicated Vol Urine Centrifuged 10ml (spun) U Opiates 300ng/mL cut Negative Ur Oxycodone Screen Negative Urine Methadone Screen Negative Ur Barbiturates Screen Negative U Tricyclic Antidepress Negative Ur Phencyclidine Scrn Negative Ur Amphetamines Screen Negative U Methamphetamines Scrn Negative Ur MDMA Scrn (Ecstasy) Negative U Benzodiazepines Scrn Negative Urine Cocaine Screen Negative U Marijuana (THC) Screen Negative Urine Specific Golden Normal Ethyl Alcohol < 10 Ur Creatinine Normal 07/27/23 00:14 WBC RBC Hgb Hct MCV MCH MCHC RDW Plt Count Neut % (Auto) Lymph % (Auto) Frontier % (Auto) Eos % (Auto) Baso % (Auto) Neut # (Auto) Lymph # (Auto) Frontier # (Auto) Eos # (Auto) Baso # (Auto) PT INR ABG Sample Site Right radial ABG pH 7.35 ABG pCO2 28.8 L ABG pO2 89 ABG HCO3 16 L ABG Total CO2 17 L ABG O2 Saturation 97 ABG Base Excess -9.0 L FiO2 21 Sodium Potassium Chloride Carbon Dioxide BUN Creatinine Estimated GFR BUN/Creatinine Ratio Glucose Calcium Magnesium Total Bilirubin AST ALT Alkaline Phosphatase Total Creatine Kinase Troponin I NT-Pro-B Natriuret Pep Total Protein Albumin Globulin Albumin/Globulin Ratio Lipase TSH Urine Color Urine Appearance Urine pH Ur Specific Golden Urine Protein Urine Glucose (UA) Urine Ketones Urine Occult Blood Urine Nitrate Urine Bilirubin Urine Urobilinogen Ur Leukocyte Esterase Urine RBC Urine WBC Ur Squamous Epith Cells Urine Bacteria Ur Culture Indicated? Vol Urine Centrifuged U Opiates 300ng/mL cut Ur Oxycodone Screen Urine Methadone Screen Ur Barbiturates Screen U Tricyclic Antidepress Ur Phencyclidine Scrn Ur Amphetamines Screen U Methamphetamines Scrn Ur MDMA Scrn (Ecstasy) U Benzodiazepines Scrn Urine Cocaine Screen U Marijuana (THC) Screen Urine Specific Golden Ethyl Alcohol Ur Creatinine Assessment & Plan Assessment & Plan narrative: Abdominal pain 58 years old male with apparent history of hypertension but not on seen a physician in more than 3 years was brought to the emergency room for abdominal pain with generalized weakness and also chest pain.? Reports that symptoms started after the [place] Bowl last week and initially thought it was indigestion issues but due to persistent symptoms, eventually was brought to the emergency room.? In the ED was noted to be in A-fib with rapid ventricular rate and heart rate in the 150s.? Denies any palpitations or loss of consciousness.? Did have abdominal pain which is diffuse with nausea and vomiting multiple episodes since the past few days and the last episode had some blood in it.? Last bowel movement was 2 days ago.? Blood pressure systolic was in the 90s with a pulse in the 150s.? He was initiated on IV fluid bolus and a follow-up labs revealed a WBC count of 11.9, hemoglobin of 17.9, sodium of 131 with a CO2 of 11 BUN of 41 and a creatinine of 1.19.? BNP was 3700 and a blood sugar of 611 with an anion gap of greater than 20.? Subsequent ABG revealed a pH of 7.35 with a pCO2 of 28.8. CT abdomen was negative for acute process.? Patient received IV insulin with aggressive volume resuscitation in addition to IV metoprolol X.3, IV Cardizem bolus.? With no response to either medication, patient was subsequently started on amiodarone drip.? He was requested for admission but currently boarded in the emergency room due to bed availability issues 1.? New onset atrial fibrillation with rapid ventricular rate not responding to IV metoprolol/IV Cardizem initially and now on amiodarone drip with slight improvement in the heart rate.? Treat reversible factors that is precipitating the event including the electrolyte imbalance and add metoprolol to the regimen.? Hold off on anticoagulation given the blood in the vomitus though it appears more likely secondary to gastritis/vomiting 2.? Diabetes mellitus uncontrolled with a blood sugar of 600 and new onset.? Check an A1c level.? Aggressive volume resuscitation with insulin sliding scale for now.? Check serum acetone level and if the gap is persistently high, may need insulin drip.? ABG shows normal pH at this time but will trend closely 3 hypotension likely secondary to volume depletion IV fluids as above and trend closely 4 GI prophylaxis will be with IV Protonix and DVT prophylaxis will be with SCDs Code status: DNI.? Discussed with the patient and he has requested no intubation but okay for CPR/defibrillation/vasopressors Patient will be admitted under hospitalist service and currently boarded in the emergency room.? Will be under inpatient status given the new onset A-fib with rapid ventricular rate needing amiodarone drip in addition to uncontrolled diabetes with expected length of stay to than 2 midnights Patient was evaluated with help of video communication device. Time spent is 15 minutes. Location of provider is [place], [place]
--- NOTE | 2023-07-27 04:26 | DI.ECHO.S_ITS ---
[facility]---------+ [facility] +---------+ : : [address] : : : : [id number] : : : : Phone: [phone]+ Echocardiogram Report + + :Name: CHAITANYA BACA Study Date: 07/27/2023 Height: 74 in : :[facility] ReadingLocation: Weight: 213 lb: : Gender: Male BSA: 2.2 m2 : :: 1965 Age: 58 yrs BP: 93/62 mmHg: :Reason For Study: ATRIAL FIBRILLATION : :Ordering Physician: CAROLINE, : :TYRONE Peterson MD Performed By: Laureen Mistry : :Referring: TYRONE VELAZQUEZ MD : + + Interpretation Summary There is mild concentric left ventricular hypertrophy. The ejection fraction is estimated to be 50-55%. Diastolic function could not be accurately assessed due to atrial fibrillation. The right ventricle is normal size. Right ventricular systolic function is at the lower limits of normal. No significant valvular abnormalities. Pulmonary artery pressures cannot be estimated because of the lack of a measurable TR jet velocity. Procedure: A two-dimensional transthoracic echocardiogram with color flow and Doppler was performed. The study quality was technically adequate. Comparison is made with the echocardiogram of 04/14/2014. The patient was in atrial fibrillation with heart rates between 103-135 bpm during the exam. Left Ventricle: The left ventricle is normal in size. There is mild concentric left ventricular hypertrophy. The ejection fraction is estimated to be 50-55%. Diastolic function could not be accurately assessed due to atrial fibrillation. Right Ventricle: The right ventricle is normal size. Right ventricular systolic function is at the lower limits of normal. Atria: The left atrial size is normal. Right atrial size is normal. There is no Doppler evidence for an interatrial shunt. Mitral Valve: The mitral valve leaflets appear mildly thickened, but open well. There is trace mitral regurgitation. Aortic Valve: The aortic valve is trileaflet. The aortic valve is mildly calcified. There is no aortic valve stenosis. No aortic regurgitation is present. Tricuspid Valve: The tricuspid valve is normal in structure and function. No tricuspid regurgitation. Pulmonary artery pressures cannot be estimated because of the lack of a measurable TR jet velocity. Pulmonic Valve: The pulmonic valve leaflets are thin and pliable; valve motion is normal. There is trace pulmonic regurgitation. Great Vessels: The aortic root is normal size. The dimensions of the ascending aorta are normal. The inferior vena cava was not well visualized. Pericardium/ Pleura There is no pericardial effusion. There is no pleural effusion. MMode/2D Measurements & Calculations LVIDd: 4.6 cm LVOT diam: 2.1 cm LVIDs: 3.3 cm Ao root diam: 4.0 cm FS: 27.6 % asc Aorta Diam: 3.5 cm IVSd: 1.1 cm Ao Arch Diam (Prox Trans): 3.1 cm LVPWd: 1.3 cm LV cooley. diameter/BSA (cm/m^2): 2.0 LV sys. diameter/BSA (cm/m^2): 1.5 LA A2 area: 20.7 cm2 RA long axis: 5.8 cm LA A4 area: 19.5 cm2 RA area: 16.2 cm2 LA length (vol): 5.9 cm RA vol: 38.5 ml LA vol: 58.1 ml RA : 17.2 ml/m2 LA vol index: 26.0 ml/m2 TAPSE: 1.6 cm Doppler Measurements & Calculations Ao V2 max: 112.0 cm/sec LVOT Max Uday: 106.0 cm/sec Ao V2 mean: 82.4 cm/sec LV V1 max P.5 mmHg Ao max P.0 mmHg LV V1 VTI: 16.1 cm Ao mean P.0 mmHg RADHA(I,D): 3.2 cm2 Ao V2 VTI: 17.2 cm RADHA(V,D): 3.2 cm2 sev ratio: 0.93 RADHA indexed to BSA (cm^2/m^2): 1.4 MV E max uday: 76.5 cm/sec PA V2 max: 78.9 cm/sec Med Peak E' Uday: 9.7 cm/sec PA V2 mean: 55.9 cm/sec E/E' med: 7.9 PA mean P.4 mmHg Lat Peak E' Uday: 9.4 cm/sec PA pr(Accel): 43.0 mmHg E/E' lat: 8.1 E/e' average: 8.0 MV dec time: 0.14 sec SV(LVOT): 55.0 ml Reading Physician:05:24 PM
[2023-07-27] MEDS: SODIUM CHLORIDE 0.9% 1,000 ML 100 ML IV ×2 (05:07→13:41)
[2023-07-27] MEDS: AMIODARONE 360 MG/200 ML PIGGYBACK 16.7 MG IV (06:11)
[2023-07-27 06:17] LABS: Add Manual Diff / Slide Review NO; Basophils Absolute Auto 0 /uL (0-100); Basophils Percent Auto 0.4 % (0-2); Eosinophils Absolute Auto 0 /uL (0-450); Hematocrit 48.5 % (41-53); Hemoglobin 16.2 g/dL (13.5-17.5); Lymphocytes Absolute Auto 1000 /uL (1100-4500); Lymphocytes Percent Auto 9.6 % (25-40); Mean Corpuscular HGB Conc 33.4 % (30-36); Mean Corpuscular Hemoglobin 31.8 PG (26-34); Monocytes Absolute Auto 800 /uL (0-900); Monocytes Percent Auto 7.2 % (3-14); Neutrophils Absolute Auto 8600 /uL (1500-7000); Neutrophils Percent Auto 82.8 % (50-75); Platelet Count 169 X10^3/uL (150-400); Red Cell Distribution Width 13.5 % (11.6-14.8); White Blood Cell Count 10.4 X10^3/uL (4.5-11.0)
[2023-07-27 06:29] LABS: Alanine Aminotransferase 58 IU/L (<50); Albumin 3.9 g/dL (3.5-5.0); Albumin Globulin Ratio 1.4 (1.0-2.8); Alkaline Phosphatase 52 U/L (38-126); Aspartate Aminotransferase 32 IU/L (17-59); BUN Creatinine Ratio 31.6 (6-22); Bilirubin Total 1.1 mg/dL (0.2-1.3); Blood Urea Nitrogen 30 mg/dL (9-20); Calcium 8.1 mg/dL (8.4-10.2); Carbon Dioxide 18 mmol/L (22-32); Chloride 101 mmol/L (98-107); Estimated Glomerular Filt Rate > 60 mL/min (>60); Globulin 2.8 g/dL (1.7-4.1); Glucose 363 mg/dL (80-110); HEMOLYSIS 22 (0-50); Lactate (Lactic Acid) 1.4 mmol/L (0.7-2.1); Phosphorous 4.4 mg/dL (2.3-3.7); Potassium 4.1 mmol/L (3.4-5.1); Sodium 136 mmol/L (137-145); Total Protein 6.7 g/dL (6.3-8.2)
[2023-07-27 06:33] LABS: Hemoglobin A1C% w Est Avg Glu 10.6 % (4.0-6.0)
[2023-07-27 06:41] LABS: Amylase 49 U/L (30-110); Lipase 254 U/L (23-300)
[2023-07-27 06:53] LABS: NT-proBNP (BNP-Adult 18+) 1910 pg/mL (<125); Troponin I < 0.012 ng/mL (0.01-0.034)
[2023-07-27] MEDS: INSULIN LISPRO 100 UNIT/ML 3ML VIAL SUBCUT ×3 (07:41→17:41)
--- NOTE | 2023-07-27 08:41 | PM.HP.1 ---
History of Present Illness History of Present Illness Date Patient Seen: 07/27/23 Chief complaint: ABD Pain Narrative: From Night Doctor: 58 years old male with apparent history of hypertension but not on seen a physician in more than 3 years was brought to the emergency room for abdominal pain with generalized weakness and also chest pain.? Reports that symptoms started after the [place] last week and initially thought it was indigestion issues but due to persistent symptoms, eventually was brought to the emergency room.? In the ED was noted to be in A-fib with rapid ventricular rate and heart rate in the 150s.? Denies any palpitations or loss of consciousness.? Did have abdominal pain which is diffuse with nausea and vomiting multiple episodes since the past few days and the last episode had some blood in it.? Last bowel movement was 2 days ago.? Blood pressure systolic was in the 90s with a pulse in the 150s.? He was initiated on IV fluid bolus and a follow-up labs revealed a WBC count of 11.9, hemoglobin of 17.9, sodium of 131 with a CO2 of 11 BUN of 41 and a creatinine of 1.19.? BNP was 3700 and a blood sugar of 611 with an anion gap of greater than 20.? Subsequent ABG revealed a pH of 7.35 with a pCO2 of 28.8. CT abdomen was negative for acute process.? Patient received IV insulin with aggressive volume resuscitation in addition to IV metoprolol X.3, IV Cardizem bolus.? With no response to either medication, patient was subsequently started on amiodarone drip.? He was requested for admission but currently boarded in the emergency room due to bed availability issues. Additional history: He was transferred up to the CCU and states he is feeling little bit better. He is received multitude of drugs aimed at rate control including IV diltiazem, and metoprolol. He has now had an amiodarone bolus and infusion in his on his 2nd bag. His heart rate is in the 110s. He states he feels generally pretty good. He denies any chest pain, pressure or dyspnea. He has no history of atrial fibrillation. He denies history of orthopnea or leg edema. He had no previous knowledge of hypoglycemia either. His blood pressure has improved with IV fluids and his glucose is improving as well. He received multiple doses of regular insulin, correctional lispro, and Lantus 20 units approximately 2 hours prior to transfer up to the floor. [facility] Social History household members: spouse Smoking Status: Never smoker Meds Home Medications and Allergies Home Medications Medication Instructions Recorded Confirmed Type multivitamin with minerals 1 tab PO DAILY 07/27/23 07/27/23 History Allergies Allergy/AdvReac Type Severity Reaction Status Date / Time Penicillins Allergy Anaphylaxis Verified 07/26/23 19:45 Sulfa (Sulfonamide Allergy Anaphylaxis Verified 07/26/23 19:46 Antibiotics) TREES Allergy Unknown Uncoded 09/13/17 12:07 Review of Systems Review of Systems Narrative: All else reviewed and otherwise unremarkable except as noted in the history and physical. Exam Vital Signs (past 8 hours): - 07/27/23 00:45 07/27/23 00:46 07/27/23 00:46 Pulse Rate 117 H 111 H Respiratory Rate 15 17 Blood Pressure 137/70 Pulse Oximetry 95 98 Oxygen Delivery Method Room Air 07/27/23 01:00 07/27/23 01:00 07/27/23 01:30 Pulse Rate 111 H 66 Respiratory Rate 20 Blood Pressure 113/56 L Pulse Oximetry 100 97 Oxygen Delivery Method Room Air 07/27/23 01:45 07/27/23 01:45 07/27/23 02:00 Pulse Rate 118 H Respiratory Rate 16 Blood Pressure 104/62 102/65 Pulse Oximetry 99 Oxygen Delivery Method Room Air 07/27/23 02:00 07/27/23 02:30 07/27/23 02:30 Pulse Rate 117 H 123 H Respiratory Rate 19 19 Blood Pressure 105/73 Pulse Oximetry 98 94 Oxygen Delivery Method Room Air 07/27/23 03:00 07/27/23 03:00 07/27/23 03:03 Pulse Rate 121 H Respiratory Rate 23 Blood Pressure 85/65 L 88/63 L Pulse Oximetry 97 Oxygen Delivery Method 07/27/23 03:03 07/27/23 03:30 07/27/23 04:00 Pulse Rate 119 H 125 H 128 H Respiratory Rate 12 20 Blood Pressure 88/63 L Pulse Oximetry 98 99 99 Oxygen Delivery Method Room Air 07/27/23 04:30 07/27/23 05:00 07/27/23 05:30 Pulse Rate 116 H 133 H 109 H Respiratory Rate 0 L 30 H 20 Blood Pressure 88/67 L Pulse Oximetry 97 98 98 Oxygen Delivery Method Room Air 07/27/23 06:00 07/27/23 06:07 07/27/23 06:07 Pulse Rate 107 H 123 H Respiratory Rate 18 Blood Pressure 94/61 Pulse Oximetry 95 100 Oxygen Delivery Method Room Air 07/27/23 06:30 07/27/23 06:30 07/27/23 07:00 Pulse Rate 127 H Respiratory Rate 19 Blood Pressure 107/66 101/64 Pulse Oximetry 100 Oxygen Delivery Method Room Air 07/27/23 07:00 07/27/23 07:30 07/27/23 07:30 Pulse Rate 109 H 136 H Respiratory Rate 20 Blood Pressure 110/61 Pulse Oximetry 98 99 Oxygen Delivery Method Room Air Oxygen Delivery Method Room Air Narrative Exam Narrative: NAD, fluent speech. He is oriented x3. He is normal judgment. Normocephalic skull, EOMI, anicteric sclera. Oropharynx is free of droop. Mucosa is dry. Neck is supple, midline trachea. No adenopathy. Lungs are clear with normal rate and effort. Heart is irregular, without murmur. It was slightly tachycardic. Abdomen is soft, nontender. Extremities are free of edema. Good pedal and radial pulses. Skin is free of rash or lesions. He moves arms and legs without difficulty and has intact cranial nerves. Language is unremarkable. Joints are not swollen or deformed. Objective ECG Impression: AF with RVR. Imaging CT scan - abdomen: Radiologist's impression: CT abdomen and pelvis without acute abnormalities to explain patient's symptoms. Colonic diverticulosis without acute diverticulitis. Normal appendix. Hepatic steatosis. Labs 07/27/23 06:10 07/27/23 06:10 Labs: Laboratory Results - last 24 hr 07/26/23 07/26/23 07/26/23 20:00 21:45 21:45 WBC 11.9 H RBC 5.57 Hgb 17.9 H Hct 52.4 MCV 93.9 MCH 32.0 MCHC 34.1 RDW 13.2 Plt Count 209 Neut % (Auto) 87.9 H Lymph % (Auto) 6.0 L [place] % (Auto) 5.9 Eos % (Auto) 0.0 L Baso % (Auto) 0.2 Neut # (Auto) 58269 H Lymph # (Auto) 700 L [place] # (Auto) 700 Eos # (Auto) 0 Baso # (Auto) 0 PT 12.9 H INR 1.1 ABG Sample Site ABG pH ABG pCO2 ABG pO2 ABG HCO3 ABG Total CO2 ABG O2 Saturation ABG Base Excess FiO2 Sodium 131 L Potassium 4.8 Chloride 96 L Carbon Dioxide 11 L BUN 41 H Creatinine 1.19 Estimated GFR > 60 BUN/Creatinine Ratio 34.5 H Glucose 611 H* Hemoglobin A1c Lactate Calcium 9.2 Phosphorus Magnesium 2.4 H Total Bilirubin 2.5 H AST 39 ALT 66 H Alkaline Phosphatase 68 Total Creatine Kinase 172 H Troponin I < 0.012 NT-Pro-B Natriuret Pep 3700 H Total Protein 7.6 Albumin 4.5 Globulin 3.1 Albumin/Globulin Ratio 1.5 Amylase Lipase 277 TSH 1.25 Urine Color Yellow Urine Appearance Clear Urine pH 5.5 Normal Ur Specific [place] <=1.005 Urine Protein Negative Urine Glucose (UA) 3+ H Urine Ketones 1+ H Urine Occult Blood Negative Urine Nitrate Negative Urine Bilirubin Negative Urine Urobilinogen 0.2 Ur Leukocyte Esterase Negative Urine RBC None seen Urine WBC None seen Ur Squamous Epith Cells None seen Urine Bacteria None seen Ur Culture Indicated? Cult not indicated Vol Urine Centrifuged 10ml (spun) U Opiates 300ng/mL cut Negative Ur Oxycodone Screen Negative Urine Methadone Screen Negative Ur Barbiturates Screen Negative U Tricyclic Antidepress Negative Ur Phencyclidine Scrn Negative Ur Amphetamines Screen Negative U Methamphetamines Scrn Negative Ur MDMA Scrn (Ecstasy) Negative U Benzodiazepines Scrn Negative Urine Cocaine Screen Negative U Marijuana (THC) Screen Negative Urine Specific [place] Normal Ethyl Alcohol < 10 Ur Creatinine Normal 07/27/23 07/27/23 00:14 06:10 WBC 10.4 RBC 5.10 Hgb 16.2 Hct 48.5 MCV 95.0 MCH 31.8 MCHC 33.4 RDW 13.5 Plt Count 169 Neut % (Auto) 82.8 H Lymph % (Auto) 9.6 L [place] % (Auto) 7.2 Eos % (Auto) 0.0 L Baso % (Auto) 0.4 Neut # (Auto) 8600 H Lymph # (Auto) 1000 L [place] # (Auto) 800 Eos # (Auto) 0 Baso # (Auto) 0 PT INR ABG Sample Site Right radial ABG pH 7.35 ABG pCO2 28.8 L ABG pO2 89 ABG HCO3 16 L ABG Total CO2 17 L ABG O2 Saturation 97 ABG Base Excess -9.0 L FiO2 21 Sodium 136 L Potassium 4.1 Chloride 101 Carbon Dioxide 18 L BUN 30 H Creatinine 0.95 Estimated GFR > 60 BUN/Creatinine Ratio 31.6 H Glucose 363 H D Hemoglobin A1c 10.6 H Lactate 1.4 Calcium 8.1 L Phosphorus 4.4 H Magnesium Total Bilirubin 1.1 AST 32 ALT 58 H Alkaline Phosphatase 52 Total Creatine Kinase Troponin I < 0.012 NT-Pro-B Natriuret Pep 1910 H Total Protein 6.7 Albumin 3.9 Globulin 2.8 Albumin/Globulin Ratio 1.4 Amylase 49 Lipase 254 TSH Urine Color Urine Appearance Urine pH Ur Specific [place] Urine Protein Urine Glucose (UA) Urine Ketones Urine Occult Blood Urine Nitrate Urine Bilirubin Urine Urobilinogen Ur Leukocyte Esterase Urine RBC Urine WBC Ur Squamous Epith Cells Urine Bacteria Ur Culture Indicated? Vol Urine Centrifuged U Opiates 300ng/mL cut Ur Oxycodone Screen Urine Methadone Screen Ur Barbiturates Screen U Tricyclic Antidepress Ur Phencyclidine Scrn Ur Amphetamines Screen U Methamphetamines Scrn Ur MDMA Scrn (Ecstasy) U Benzodiazepines Scrn Urine Cocaine Screen U Marijuana (THC) Screen Urine Specific [place] Ethyl Alcohol Ur Creatinine Assessment & Plan Assessment & Plan narrative: 1.? New onset atrial fibrillation with rapid ventricular rate not responding to IV metoprolol/IV Cardizem initially and now on amiodarone drip with slight improvement in the heart rate.? -continue fluid resuscitation and treatment of hyperglycemia. -we will give an additional at 1:50 a.m. bolus of amiodarone in addition to the current infusion. -we will start metoprolol 25 immediate acting q.8 hours and titrate up as needed. 2.? Diabetes mellitus 2 uncontrolled with a blood sugar of 600 and new onset.? -Check an A1c level, pending. -Aggressive volume resuscitation with insulin sliding scale for now.? -Check serum acetone level and if the gap is persistently high, may need insulin drip.? -ABG shows normal pH at admission. 3 Hypovolemic hypotension likely secondary to volume depletion, present on admission and active. -IV fluids as above and trend closely 4 GI prophylaxis will be with IV Protonix and DVT prophylaxis will be with SCDs Code status: DNI.? Discussed with the patient and he has requested no intubation but okay for CPR/defibrillation/vasopressors Patient will be admitted under hospitalist service under inpatient status given the new onset A-fib with rapid ventricular rate needing amiodarone drip in addition to uncontrolled diabetes with expected length of stay to than 2 midnights. Full code Proxy is . Time Spent With Patient Time with patient: 30 to 49 minutes with 50% spent counseling/coordinating care Quality MIPS - Admit I confirm the patient?s Advance Care Plan is present, Code status is documented, Surrogate decision maker is in patient?s record [If Yes, STOP here]: Yes [facility] - Meds 'Current medications' to include all prescriptions, [id number] products, herbals, cannabis/cannabidiol products, and vitamin/mineral/dietary (nutritional) supplements. I have utilized all available resources to obtain, update, or review the patient?s current medications. [If Yes, STOP here]: Yes
[2023-07-27] MEDS: PANTOPRAZOLE 40 MG VIAL IV (08:48)
[2023-07-27] MEDS: INSULIN GLARGINE 100 UNIT/ML 3ML PEN 20 UNIT SUBCUT (09:02)
--- NOTE | 2023-07-27 11:13 | PC.NURSE ---
Pt HR increased to 140. Pt a&ox4. Denies dizziness or any changes in sx. Called hospitalist office with no answer.
[2023-07-27] MEDS: AMIODARONE 150 MG/100 ML 600 MG IV (12:06)
[2023-07-27] MEDS: MORPHINE 2 MG/ML INJ (12:37)
[2023-07-27] MEDS: SODIUM CHLORIDE 0.9% 1,000 ML 999 ML IV (12:38)
[2023-07-27] MEDS: MAG HYDROX/ALUMINUM/SIMETH SUS 20 ML, LIDOCAINE VISCOUS 2% 15 ML PO (13:35)
[2023-07-27 14:03] LABS: Troponin I < 0.012 ng/mL (0.01-0.034)
[2023-07-27] MEDS: CALCIUM CARBONATE 500 MG TAB 1000 MG PO (14:32)
[2023-07-27] MEDS: LORazepam 2 MG/ML INJ IV (14:32)
--- NOTE | 2023-07-27 15:41 | PC.NURSE ---
1130 Pt arrived via gurney from ED, able to ambulate to bed, attached to all monitoring equipment, currently in AFIB RVR with rate 110-160, BP 98/54 with amiodarone infusing at 16.7 mL/hr. Dr Smith at bedside, new orders received. Oriented pt to room and call light system, FSBG check 297, high dose sliding scale, 7 units insulin administered. No further needs at this time
[2023-07-27 16:18] LABS: MRSA (Nasal) PCR Not Detected (Not Detect)
--- NOTE | 2023-07-27 16:38 | P.DS_ITS ---
History of Present Illness History of Present Illness Chief complaint: ABD Pain Narrative: From Night Doctor: 58 years old male with apparent history of hypertension but not on seen a physician in more than 3 years was brought to the emergency room for abdominal pain with generalized weakness and also chest pain.? Reports that symptoms started after the [place] last week and initially thought it was indigestion issues but due to persistent symptoms, eventually was brought to the emergency room.? In the ED was noted to be in A-fib with rapid ventricular rate and heart rate in the 150s.? Denies any palpitations or loss of consciousness.? Did have abdominal pain which is diffuse with nausea and vomiting multiple episodes since the past few days and the last episode had some blood in it.? Last bowel movement was 2 days ago.? Blood pressure systolic was in the 90s with a pulse in the 150s.? He was initiated on IV fluid bolus and a follow-up labs revealed a WBC count of 11.9, hemoglobin of 17.9, sodium of 131 with a CO2 of 11 BUN of 41 and a creatinine of 1.19.? BNP was 3700 and a blood sugar of 611 with an anion gap of greater than 20.? Subsequent ABG revealed a pH of 7.35 with a pCO2 of 28.8. CT abdomen was negative for acute process.? Patient received IV insulin with aggressive volume resuscitation in addition to IV metoprolol X.3, IV Cardizem bolus.? With no response to either medication, patient was subsequently started on amiodarone drip.? He was requested for admission but currently boarded in the emergency room due to bed availability issues. Additional history: He was transferred up to the CCU and states he is feeling little bit better. He is received multitude of drugs aimed at rate control including IV diltiazem, and metoprolol. He has now had an amiodarone bolus and infusion in his on his 2nd bag. His heart rate is in the 110s. He states he feels generally pretty good. He denies any chest pain, pressure or dyspnea. He has no history of atrial fibrillation. He denies history of orthopnea or leg edema. He had no previous knowledge of hypoglycemia either. His blood pressure has improved with IV fluids and his glucose is improving as well. He received multiple doses of regular insulin, correctional lispro, and Lantus 20 units approximately 2 hours prior to transfer up to the floor. Discharge Providers Provider Date of admission: 07/27/23 00:34 Discharge Date: 07/27/23 Primary care physician: Prabhakar Mcclain MD Consults: None. Requested transfer to [facility] for CADY cardioversion (Lynn Caba and Ruddy informed). Discharge provider: Joel Smith MD Summary Hospital Course Discharge Diagnosis: 1.? New onset atrial fibrillation with rapid ventricular rate not responding to IV metoprolol/IV Cardizem initially and now on amiodarone drip with slight improvement in the heart rate.? -continue fluid resuscitation and treatment of hyperglycemia. -we will give an additional at 1:50 a.m. bolus of amiodarone in addition to the current infusion. -we will start metoprolol 25 immediate acting q.8 hours and titrate up as needed. 2.? Diabetes mellitus 2 uncontrolled with a blood sugar of 600 and new onset.? -Check an A1c level, pending. -Aggressive volume resuscitation with insulin sliding scale for now.? -Check serum acetone level and if the gap is persistently high, may need insulin drip.? -ABG shows normal pH at admission. 3 Hypovolemic hypotension likely secondary to volume depletion, present on admission and active. -IV fluids as above and trend closely 4 GI prophylaxis will be with IV Protonix and DVT prophylaxis will be with SCDs Hospital Course: He was admitted with new DM, hyperglycemia, and AF + RVR. He was ntoes to have 1+ ketones and was treated with IV regular glucose and then SQ lantus and lispro. AF did not rate control with Diltiazem IV or Metoprolol IV. Was loaded on IV Amiodarone, followed by 360 mg/6 hour infusion and then a 180 mg/ 6 hour infusion. He was given an additional IV Amio bolus of 150 at 1300. He has persistent tachycardia and marginal BP. It was felt he would benefit from CADY cardioversion. He was discussed with Dr Caba (hospitalist) and Dr Fox ([employer]) and accepted. He will be started on a heparin drip up arrival there. He had a anion gap of 16 at 0600 this AM. Status at Discharge Cognitive/behavioral status at discharge: oriented Functional status at discharge: independent ambulation Overall status at discharge: patient is progressing back to baseline Time Spent with Patient Time spent: Greater than 30 minutes Exam Vital Signs (past 8 hours): - 07/27/23 09:00 07/27/23 09:00 07/27/23 09:30 Pulse Rate 127 H Respiratory Rate 18 Blood Pressure 117/66 116/64 Pulse Oximetry 100 Oxygen Delivery Method 07/27/23 09:30 07/27/23 10:00 07/27/23 10:00 Pulse Rate 128 H 130 H Respiratory Rate 20 24 Blood Pressure 109/87 Pulse Oximetry 99 98 Oxygen Delivery Method 07/27/23 10:30 07/27/23 10:31 07/27/23 10:31 Pulse Rate 112 H Respiratory Rate 12 16 Blood Pressure 122/74 Pulse Oximetry 100 100 Oxygen Delivery Method 07/27/23 10:32 07/27/23 10:32 07/27/23 11:00 Pulse Rate 117 H 123 H Respiratory Rate 18 Blood Pressure 111/68 Pulse Oximetry 96 99 Oxygen Delivery Method 07/27/23 11:00 07/27/23 11:30 07/27/23 12:26 Pulse Rate 130 H Respiratory Rate 18 Blood Pressure 117/76 Pulse Oximetry 95 Oxygen Delivery Method Room Air 07/27/23 12:30 07/27/23 12:30 07/27/23 12:46 Pulse Rate 121 H 118 H Respiratory Rate 19 19 Blood Pressure 98/64 Pulse Oximetry 97 97 Oxygen Delivery Method 07/27/23 12:46 07/27/23 13:00 07/27/23 13:00 Pulse Rate 116 H Respiratory Rate 17 Blood Pressure 122/96 H 133/89 Pulse Oximetry 100 Oxygen Delivery Method 07/27/23 13:15 07/27/23 13:15 07/27/23 13:30 Pulse Rate 117 H Respiratory Rate 16 Blood Pressure 136/75 118/66 Pulse Oximetry 99 Oxygen Delivery Method 07/27/23 13:30 07/27/23 13:45 07/27/23 13:45 Pulse Rate 120 H 126 H Respiratory Rate 21 16 Blood Pressure 129/79 Pulse Oximetry 98 98 Oxygen Delivery Method 07/27/23 14:00 07/27/23 14:00 07/27/23 14:15 Pulse Rate 126 H Respiratory Rate 16 Blood Pressure 130/76 113/59 L Pulse Oximetry 99 Oxygen Delivery Method 07/27/23 14:15 07/27/23 14:30 07/27/23 14:30 Pulse Rate 118 H 123 H Respiratory Rate 18 19 Blood Pressure 137/69 Pulse Oximetry 98 99 Oxygen Delivery Method 07/27/23 14:45 07/27/23 14:45 07/27/23 14:47 Pulse Rate 126 H Respiratory Rate 17 Blood Pressure 82/57 L 91/66 Pulse Oximetry 96 Oxygen Delivery Method 07/27/23 14:47 07/27/23 15:00 07/27/23 15:00 Pulse Rate 125 H 128 H Respiratory Rate 20 27 H Blood Pressure 93/62 Pulse Oximetry 96 96 Oxygen Delivery Method 07/27/23 15:15 07/27/23 15:15 07/27/23 15:30 Pulse Rate 124 H Respiratory Rate 24 Blood Pressure 94/74 Pulse Oximetry 98 Oxygen Delivery Method Room Air 07/27/23 15:30 07/27/23 15:30 07/27/23 15:45 Pulse Rate 123 H Respiratory Rate 26 H Blood Pressure 139/88 137/93 H Pulse Oximetry 98 Oxygen Delivery Method 07/27/23 15:45 07/27/23 16:00 07/27/23 16:01 Pulse Rate 121 H 116 H Respiratory Rate 21 19 Blood Pressure 113/71 Pulse Oximetry 95 98 Oxygen Delivery Method 07/27/23 16:01 Pulse Rate 112 H Respiratory Rate 16 Blood Pressure Pulse Oximetry 98 Oxygen Delivery Method Oxygen Delivery Method Room Air Narrative Exam Narrative: NAD, sedated Lungs clear. CV irregular and tachycardic. Abdomen soft. Extremities without edema. Objective ECG Impression: AF + RVR Imaging Chest x-ray: Radiologist's impression: No acute abnormality. CT scan - abdomen: Radiologist's impression: CT abdomen and pelvis without acute abnormalities to explain patient's symptoms. Colonic diverticulosis without acute diverticulitis. Normal appendix. Hepatic steatosis. Labs 07/27/23 06:10 07/27/23 06:10 Labs: Laboratory Results - last 24 hr 07/26/23 07/26/23 07/26/23 20:00 21:45 21:45 WBC 11.9 H RBC 5.57 Hgb 17.9 H Hct 52.4 MCV 93.9 MCH 32.0 MCHC 34.1 RDW 13.2 Plt Count 209 Neut % (Auto) 87.9 H Lymph % (Auto) 6.0 L Metcalfe % (Auto) 5.9 Eos % (Auto) 0.0 L Baso % (Auto) 0.2 Neut # (Auto) 34903 H Lymph # (Auto) 700 L Metcalfe # (Auto) 700 Eos # (Auto) 0 Baso # (Auto) 0 PT 12.9 H INR 1.1 ABG Sample Site ABG pH ABG pCO2 ABG pO2 ABG HCO3 ABG Total CO2 ABG O2 Saturation ABG Base Excess FiO2 Sodium 131 L Potassium 4.8 Chloride 96 L Carbon Dioxide 11 L BUN 41 H Creatinine 1.19 Estimated GFR > 60 BUN/Creatinine Ratio 34.5 H Glucose 611 H* Hemoglobin A1c Lactate Calcium 9.2 Phosphorus Magnesium 2.4 H Total Bilirubin 2.5 H AST 39 ALT 66 H Alkaline Phosphatase 68 Total Creatine Kinase 172 H Troponin I < 0.012 NT-Pro-B Natriuret Pep 3700 H Total Protein 7.6 Albumin 4.5 Globulin 3.1 Albumin/Globulin Ratio 1.5 Amylase Lipase 277 TSH 1.25 Urine Color Yellow Urine Appearance Clear Urine pH 5.5 Normal Ur Specific Hepler <=1.005 Urine Protein Negative Urine Glucose (UA) 3+ H Urine Ketones 1+ H Urine Occult Blood Negative Urine Nitrate Negative Urine Bilirubin Negative Urine Urobilinogen 0.2 Ur Leukocyte Esterase Negative Urine RBC None seen Urine WBC None seen Ur Squamous Epith Cells None seen Urine Bacteria None seen Ur Culture Indicated? Cult not indicated Vol Urine Centrifuged 10ml (spun) Nasal Screen MRSA (PCR) U Opiates 300ng/mL cut Negative Ur Oxycodone Screen Negative Urine Methadone Screen Negative Ur Barbiturates Screen Negative U Tricyclic Antidepress Negative Ur Phencyclidine Scrn Negative Ur Amphetamines Screen Negative U Methamphetamines Scrn Negative Ur MDMA Scrn (Ecstasy) Negative U Benzodiazepines Scrn Negative Urine Cocaine Screen Negative U Marijuana (THC) Screen Negative Urine Specific Hepler Normal Ethyl Alcohol < 10 Ur Creatinine Normal 07/27/23 07/27/23 07/27/23 00:14 06:10 11:47 WBC 10.4 RBC 5.10 Hgb 16.2 Hct 48.5 MCV 95.0 MCH 31.8 MCHC 33.4 RDW 13.5 Plt Count 169 Neut % (Auto) 82.8 H Lymph % (Auto) 9.6 L Metcalfe % (Auto) 7.2 Eos % (Auto) 0.0 L Baso % (Auto) 0.4 Neut # (Auto) 8600 H Lymph # (Auto) 1000 L Metcalfe # (Auto) 800 Eos # (Auto) 0 Baso # (Auto) 0 PT INR ABG Sample Site Right radial ABG pH 7.35 ABG pCO2 28.8 L ABG pO2 89 ABG HCO3 16 L ABG Total CO2 17 L ABG O2 Saturation 97 ABG Base Excess -9.0 L FiO2 21 Sodium 136 L Potassium 4.1 Chloride 101 Carbon Dioxide 18 L BUN 30 H Creatinine 0.95 Estimated GFR > 60 BUN/Creatinine Ratio 31.6 H Glucose 363 H D Hemoglobin A1c 10.6 H Lactate 1.4 Calcium 8.1 L Phosphorus 4.4 H Magnesium Total Bilirubin 1.1 AST 32 ALT 58 H Alkaline Phosphatase 52 Total Creatine Kinase Troponin I < 0.012 NT-Pro-B Natriuret Pep 1910 H Total Protein 6.7 Albumin 3.9 Globulin 2.8 Albumin/Globulin Ratio 1.4 Amylase 49 Lipase 254 TSH Urine Color Urine Appearance Urine pH Ur Specific Hepler Urine Protein Urine Glucose (UA) Urine Ketones Urine Occult Blood Urine Nitrate Urine Bilirubin Urine Urobilinogen Ur Leukocyte Esterase Urine RBC Urine WBC Ur Squamous Epith Cells Urine Bacteria Ur Culture Indicated? Vol Urine Centrifuged Nasal Screen MRSA (PCR) Not detected U Opiates 300ng/mL cut Ur Oxycodone Screen Urine Methadone Screen Ur Barbiturates Screen U Tricyclic Antidepress Ur Phencyclidine Scrn Ur Amphetamines Screen U Methamphetamines Scrn Ur MDMA Scrn (Ecstasy) U Benzodiazepines Scrn Urine Cocaine Screen U Marijuana (THC) Screen Urine Specific He[place] Ethyl Alcohol Ur Creatinine 07/27/23 13:20 WBC RBC Hgb Hct MCV MCH MCHC RDW Plt Count Neut % (Auto) Lymph % (Auto) Metcalfe % (Auto) Eos % (Auto) Baso % (Auto) Neut # (Auto) Lymph # (Auto) Metcalfe # (Auto) Eos # (Auto) Baso # (Auto) PT INR ABG Sample Site ABG pH ABG pCO2 ABG pO2 ABG HCO3 ABG Total CO2 ABG O2 Saturation ABG Base Excess FiO2 Sodium Potassium Chloride Carbon Dioxide BUN Creatinine Estimated GFR BUN/Creatinine Ratio Glucose Hemoglobin A1c Lactate Calcium Phosphorus Magnesium Total Bilirubin AST ALT Alkaline Phosphatase Total Creatine Kinase Troponin I < 0.012 NT-Pro-B Natriuret Pep Total Protein Albumin Globulin Albumin/Globulin Ratio Amylase Lipase TSH Urine Color Urine Appearance Urine pH Ur Specific Hepler Urine Protein Urine Glucose (UA) Urine Ketones Urine Occult Blood Urine Nitrate Urine Bilirubin Urine Urobilinogen Ur Leukocyte Esterase Urine RBC Urine WBC Ur Squamous Epith Cells Urine Bacteria Ur Culture Indicated? Vol Urine Centrifuged Nasal Screen MRSA (PCR) U Opiates 300ng/mL cut Ur Oxycodone Screen Urine Methadone Screen Ur Barbiturates Screen U Tricyclic Antidepress Ur Phencyclidine Scrn Ur Amphetamines Screen U Methamphetamines Scrn Ur MDMA Scrn (Ecstasy) U Benzodiazepines Scrn Urine Cocaine Screen U Marijuana (THC) Screen Urine Specific [place] Ethyl Alcohol Ur Creatinine PFSH Social History household members: spouse Smoking Status: Never smoker Discharge Plan Discharge Plan Patient Disposition: [facility] Other facility: [facility] Under care of provider: Dr Caba (accepting hospitalist) Provider Discharge Comment: Patient is being transferred to [facility] for transesophageal echo and cardioversion. He will be started on heparin there. Discharge orders & Medications Discharge Orders: Discharge (Order); Ordered 07/27/23 Ordered By: Joel Smith Prescriptions: No Action All Purpose Multivitamin-Min Tablet 1 tab PO DAILY Follow up/Referrals: Prabhakar Mcclain MD [Primary Care Provider] - Diet/Activity/Treatments Diet: Carb-consistent/Diabetic Diet comment: NPO at Midnight Activity: Bedrest Discharge Data Primary Care Provider: Prabhakar Mcclain
== END 2023-07-27 19:30 | disposition short-term general hospital (02) | DRG 310 ==
LOC: ED 19:51 → AC 07-27 03:03 → ICU 07-27 11:16 → AC 07-27 14:28 → ICU 07-27 14:28
PROVIDERS: Hospitalist; Admitting Provider Internal Medicine; Emergency Provider Emergency Medicine; PCP Family Medicine; Referring Provider Emergency Medicine; Visit Provider Internal Medicine
DX: I48.91 Unspecified atrial fibrillation (principal); E11.65 Type 2 diabetes mellitus with hyperglycemia; I95.89 Other hypotension; R00.0 Tachycardia, unspecified
CPT/HCPCS: 36415; 36600; 71045; 74177; 80053; 80305; 80320; 81001; 82150; 82550; 82805; 82962; 83036; 83605; 83690; 83735; 83880; 84100; 84443; 84484; 85025; 85610; 87797; 93005; 93306; 96365; 96366; 96372; 96375; 96376; 99285; 99291; C9113; J0282; J1815; J2060; J2270; Q9967

== ENCOUNTER → 2024-02-26 11:36 | Outpatient (CLI) | payer OTHER, SELFPAY ==
[2023-07-27 09:23] VITALS: BMI 29.0
[2024-02-26 14:19] LABS: Alanine Aminotransferase 26 IU/L (<50); Albumin 4.4 g/dL (3.5-5.0); Albumin Globulin Ratio 1.6 (1.0-2.8); Alkaline Phosphatase 58 U/L (38-126); Aspartate Aminotransferase 27 IU/L (17-59); BUN Creatinine Ratio 19.7 (6-22); Bilirubin Total 0.7 mg/dL (0.2-1.3); Blood Urea Nitrogen 13 mg/dL (9-20); Calcium 9.2 mg/dL (8.4-10.2); Carbon Dioxide 26 mmol/L (22-32); Chloride 104 mmol/L (98-107); Estimated Glomerular Filt Rate > 60 mL/min (>60); Globulin 2.7 g/dL (1.7-4.1); Glucose 138 mg/dL (80-110); HEMOLYSIS < 15 (0-50); Potassium 4.4 mmol/L (3.4-5.1); Sodium 138 mmol/L (137-145); Total Protein 7.1 g/dL (6.3-8.2)
== END ==
PROVIDERS: Referring Provider Nurse Practitioner Acute Care; Visit Provider Nurse Practitioner Acute Care
DX: I48.0 Paroxysmal atrial fibrillation (principal)
CPT/HCPCS: 36415; 80053; 84443